=== PATIENT | male | born 1975 | race Caucasian/White ===

== ENCOUNTER 2021-09-26 05:22 | Observation (INO) | payer SELFPAY ==
[2021-09-26 05:46] LABS: Hemoglobin 17.9 g/dL (14.0-18.0); Mean Corpuscular HGB CONC 33.9 g/dL (32.0-36.0); Mean Corpuscular Hemoglobin 33.6 pg (27.0-31.0); Mean Platelet Volume 8.5 fL (7.4-10.4); Platelet Count 164 thou/uL (130-400); RBC Distribution Width 12.5 % (11.5-14.5); Red Blood Cell (RBC) Count 5.33 mill/uL (4.70-6.10); White Blood Cell (WBC) Count 20.5 thou/uL (4.8-10.8)
[2021-09-26 06:05] LABS: ALT (SGPT) 169 U/L (8-55); AST (SGOT) 88 U/L (5-34); Albumin 4.3 g/dL (3.5-5.0); Alkaline Phosphatase 81 U/L (40-110); Anion Gap 16 mmol/L (10-20); BUN (Urea Nitrogen) 6 mg/dL (8.9-20.6); Band 3 % (5-11); Calc. Creatinine Clearance 0 mL/min (70-130); Calcium 9.5 mg/dL (7.8-10.44); Carbon Dioxide 22 mmol/L (22-29); Chloride 102 mmol/L (98-107); Globulin 3.8 g/dL (2.4-3.5); Glucose 126 mg/dL (70-105); Lymphocytes 14 % (21-51); MDiff Complete? YES; Monocytes 18 % (0-10); Neutrophil 65 % (42-75); Platelet Morphology Comment Appears Adequate; Protein, Total 8.1 g/dL (6.0-8.3); RBC Morphology Normal; Sodium 136 mmol/L (136-145)
[2021-09-26] MEDS ORDERED: Aspirin 325 MG TAB ONE (08:04)
[2021-09-26] MEDS ORDERED: Ketorolac Tromethamine 30 MG/ML VIAL ONE (08:04)
[2021-09-26] MEDS ORDERED: Morphine 4 MG/ML VIAL ONE (08:04)
[2021-09-26] MEDS ORDERED: Ondansetron PF 4 MG/2 ML Vial IVP PRN (10:07)
[2021-09-26] MEDS ORDERED: Senokot S 8.6-50 MG TAB PO PRN (10:07)
[2021-09-26] MEDS ORDERED: Acetaminophen 325 MG TAB PO PRN (10:07)
[2021-09-26] MEDS ORDERED: Guaifenesin DM 100-10/5 ML UDCUP PO PRN (10:07)
[2021-09-26] MEDS ORDERED: HYDROcodone/Acetaminophen 5/325 mg Tablet PO PRN (10:07)
[2021-09-26] MEDS ORDERED: Calcium Carbonate 500 MG ChewTAB PO PRN (10:07)
[2021-09-26 11:11] LABS: SARS-CoV-2 NAA Rapid Test Not Detected (NotDetected)
[2021-09-26] MEDS: Sodium Chloride 0.9% 1,000 ML IV SCH ×2 (11:14→17:35)
[2021-09-26 11:51] LABS: Cardiac Risk 5.2 (Less than 4.5)
[2021-09-26 12:02] LABS: Troponin I Less than 0.010 ng/mL (< 0.028)
[2021-09-26] MEDS: Nitroglycerin 2% Ointment 1 INCH/1 GM Packet TOP SCH ×2 (14:55→21:01)
[2021-09-26] MEDS ORDERED: Nitroglycerin 2% Ointment 1 INCH/1 GM Packet ONE (14:59)
[2021-09-26 15:15] LABS: Troponin I Less than 0.010 ng/mL (< 0.028)
[2021-09-26 19:32] VITALS: BMI 31.6
[2021-09-26] MEDS ORDERED: Morphine 4 MG/ML VIAL SLOW IVP PRN (20:16)
[2021-09-26] MEDS: Enoxaparin Sodium 100 MG/ML SYRINGE SC SCH (21:00)
[2021-09-26] MEDS: Carvedilol 3.125 MG TAB PO SCH (21:00)
[2021-09-26] MEDS: Colchicine 0.6 MG TAB PO SCH (21:00)
[2021-09-26] MEDS: Ketorolac Tromethamine 30 MG/ML VIAL IVP PRN (21:01)
[2021-09-27] MEDS: Nitroglycerin 2% Ointment 1 INCH/1 GM Packet TOP SCH (05:34)
[2021-09-27] MEDS: Ketorolac Tromethamine 30 MG/ML VIAL IVP PRN (05:35)
[2021-09-27 07:25] LABS: #Basophils 0.1 thou/uL (0.0-0.2); #Eosinphils 0.2 thou/uL (0.0-0.7); #Lymphocytes 2.7 thou/uL (1.20-3.40); #Monocytes 1.1 thou/uL (0.11-0.59); #Neutrophils 8.2 thou/uL (1.40-6.50); %Basophils 0.5 % (0.0-1.0); %Monocytes 8.6 % (0.0-10.0); Hemoglobin 16.2 g/dL (14.0-18.0); Mean Corpuscular HGB CONC 32.9 g/dL (32.0-36.0); Mean Corpuscular Hemoglobin 33.4 pg (27.0-31.0); Mean Platelet Volume 9.1 fL (7.4-10.4); Platelet Count 124 thou/uL (130-400); RBC Distribution Width 12.4 % (11.5-14.5); Red Blood Cell (RBC) Count 4.84 mill/uL (4.70-6.10); White Blood Cell (WBC) Count 12.2 thou/uL (4.8-10.8)
[2021-09-27 07:43] LABS: Anion Gap 12 mmol/L (10-20); BUN (Urea Nitrogen) 11 mg/dL (8.9-20.6); Calc. Creatinine Clearance 142 mL/min (70-130); Calcium 8.7 mg/dL (7.8-10.44); Carbon Dioxide 22 mmol/L (22-29); Chloride 103 mmol/L (98-107); Glucose 84 mg/dL (70-105); Potassium 3.7 mmol/L (3.5-5.1); Sodium 133 mmol/L (136-145)
[2021-09-27 07:48] VITALS: TEMP 98.4
[2021-09-27] MEDS ORDERED: Ibuprofen 600 MG TAB PO SCH (08:00)
[2021-09-27] MEDS ORDERED: Aspirin Chewable 81 MG TAB PO SCH (09:00)
[2021-09-27] MEDS: Enoxaparin Sodium 100 MG/ML SYRINGE SC SCH (09:11)
[2021-09-27] MEDS: Carvedilol 3.125 MG TAB PO SCH (09:11)
[2021-09-27] MEDS: Colchicine 0.6 MG TAB PO SCH (09:11)
[2021-09-27 11:48] VITALS: BP 118/67
[2021-09-29] MEDS ORDERED: FLU VACC QS2021-22(6MOS UP)/PF 60 MCG/0.5 ML SYRINGE IM ONE (09:00)
== END 2021-09-27 11:55 | disposition home or self-care (01) ==
LOC: ERS 05:22 → ERHOLD 10:07 → 2NO 17:52
PROVIDERS: ADMIT Internal Medicine; ATTEND Internal Medicine
DX: I30.9 Acute pericarditis, unspecified (principal); F17.210 Nicotine dependence, cigarettes, uncomplicated; I08.1 Rheumatic disorders of both mitral and tricuspid valves; R79.89 Other specified abnormal findings of blood chemistry; Z20.822 Contact with and (suspected) exposure to COVID-19
CPT/HCPCS: 36415; 71045; 71275; 80048; 80053; 80061; 82550; 84484; 85025; 85379; 87040; 87086; 87633; 93005; 93306; 96372; 96374; 96375; 96376; G0378; J1650; J1885; J2270; J7050; U0002

== ENCOUNTER 2023-07-05 08:43 | Inpatient (IN) | payer OTHER, SELFPAY ==
[2023-07-05] MEDS ORDERED: Ketorolac Tromethamine 30 MG/ML VIAL ONE (09:03)
[2023-07-05] MEDS ORDERED: Ondansetron PF 4 MG/2 ML Vial ONE ×2 (09:03→19:03)
[2023-07-05 09:25] LABS: #Basophils 0.1 thou/uL (0.0-0.2); #Eosinphils 0.6 thou/uL (0.0-0.7); #Monocytes 1.1 thou/uL (0.11-0.59); #Neutrophils 13.3 thou/uL (1.40-6.50); %Basophils 0.7 % (0.0-1.0); %Eosinophils 3.5 % (0.0-10.0); %Lymphocytes 12.8 % (21.0-51.0); %Monocytes 6.4 % (0.0-10.0); %Neutrophils 75.6 % (42.0-75.0); Hematocrit 45.3 % (42.0-52.0); Hemoglobin 15.4 g/dL (14.0-18.0); Mean Corpuscular Hemoglobin 32.6 pg (27.0-31.0); Mean Platelet Volume 10.9 fL (7.4-10.4); Platelet Count 245 10x3/uL (130-400); RBC Distribution Width 12.2 % (11.5-14.5); Red Blood Cell (RBC) Count 4.72 mill/uL (4.70-6.10); White Blood Cell (WBC) Count 17.6 10x3/uL (4.8-10.8)
[2023-07-05 09:48] LABS: ALT (SGPT) 63 U/L (8-55); AST (SGOT) 77 U/L (5-34); Albumin 3.8 g/dL (3.5-5.0); Alkaline Phosphatase 149 U/L (40-110); Anion Gap 13 mmol/L (10-20); BUN (Urea Nitrogen) 10 mg/dL (8.9-20.6); Bilirubin, Total 0.8 mg/dL (0.2-1.2); Calc. Creatinine Clearance 0 mL/min (70-130); Calcium 9.4 mg/dL (7.8-10.44); Carbon Dioxide 25 mmol/L (22-29); Chloride 97 mmol/L (98-107); Estimated GFR 106; Globulin 3.7 g/dL (2.4-3.5); Glucose 125 mg/dL (70-105); Lipase 62 U/L (8-78); Potassium 3.2 mmol/L (3.5-5.1); Protein, Total 7.5 g/dL (6.0-8.3); Sodium 132 mmol/L (136-145)
[2023-07-05] MEDS ORDERED: Sodium Chloride 0.9% 1,000 ML IV SCH (10:30)
[2023-07-05] MEDS ORDERED: Ipratropium/Albuterol 3 ML NEB NEB PRN (10:30)
[2023-07-05] MEDS ORDERED: Ondansetron PF 4 MG/2 ML Vial IVP PRN ×2 (10:30→22:20)
[2023-07-05] MEDS ORDERED: traMADol HCl 50 MG TAB PO PRN (10:33)
[2023-07-05] MEDS ORDERED: Acetaminophen 500 MG TAB PO SCH (10:45)
[2023-07-05 11:03] LABS: INR-International Normal Ratio 1.2; PTT 31.1 sec (22.9-36.1); Prothrombin Time 15.4 sec (12.0-14.7)
[2023-07-05] MEDS ORDERED: Piperacillin/Tazobactam 4.5 GM VIAL ONE (11:03)
[2023-07-05] MEDS ORDERED: Sodium Chloride 0.9% 100 ML ONE (11:04)
[2023-07-05] MEDS ORDERED: Magnesium 2 GM/50 ML(in water) 2 GM in Premix 1 BAG IVPB SCH (12:00)
[2023-07-05 12:22] VITALS: BMI 26.6
[2023-07-05] MEDS ORDERED: FLU VACC QS2023-24(6MOS UP)/PF 60 MCG/0.5 ML SYRINGE IM ONE (12:45)
[2023-07-05] MEDS: Lactated Ringer's 1,000 ML IV SCH ×2 (12:55→22:09)
[2023-07-05] MEDS: traMADol HCl 50 MG TAB PO SCH ×3 (12:55→23:37)
[2023-07-05] MEDS: Acetaminophen 325 MG TAB PO SCH ×2 (12:56→17:30)
[2023-07-05] MEDS: Potassium Chloride 20 MEQ in Premix 1 BAG IVPB SCH ×2 (14:17→16:12)
[2023-07-05] MEDS: Piperacillin/Tazobactam 3.375 GM in Sodium Chloride 0.9% 100 ML IVPB SCH ×3 (17:52→23:40)
[2023-07-05] MEDS ORDERED: EPINEPHrine 1 MG/ML VIAL ONE (18:30)
[2023-07-05] MEDS ORDERED: Bupivacaine PF 0.5% 30 ML VIAL ONE (18:30)
[2023-07-05] MEDS ORDERED: fentaNYL 50 mcg/mL 1 mL Vial ONE (18:48)
[2023-07-05] MEDS ORDERED: fentaNYL PF 100 MCG/2 ML SYRINGE ONE (18:49)
[2023-07-05] MEDS ORDERED: Lidocaine 1% PF 5 ML VIAL ONE (19:03)
[2023-07-05] MEDS ORDERED: Glycopyrrolate 0.2 MG/ML 5 ML SYRINGE ONE (19:03)
[2023-07-05] MEDS ORDERED: Rocuronium Bromide 10 MG/ML (10ML VIAL) ONE (19:03)
[2023-07-05] MEDS ORDERED: PROPOFOL 200 MG/20 ML VIAL ONE (19:03)
[2023-07-05] MEDS ORDERED: Dexamethasone 20 MG/5 ML VIAL ONE (19:03)
[2023-07-05] MEDS ORDERED: NEOSTIGMINE 3 MG/3 ML SYR 3 MG/3 ML SYRINGE ONE (19:03)
[2023-07-05] MEDS ORDERED: PHENYLEPHRINE-NS 100 MCG/ML 10 ML SYRINGE ONE (19:03)
[2023-07-05] MEDS ORDERED: Ondansetron HCl/PF 4 MG/2 ML Vial IVP PRN (21:00)
[2023-07-05] MEDS ORDERED: Morphine Sulfate 2 MG/ML SYRINGE SLOW IVP PRN (21:00)
[2023-07-05] MEDS ORDERED: HYDROmorphone 2 MG/ML VIAL SLOW IVP PRN (21:00)
[2023-07-05] MEDS ORDERED: PACU-Morphine 4MG/ML VIAL SLOW IVP PRN (21:00)
[2023-07-05] MEDS ORDERED: Famotidine 20 MG TAB PO SCH (21:00)
[2023-07-05] MEDS ORDERED: Promethazine HCl 25 MG/ML VIAL IM PRN (21:00)
[2023-07-05] MEDS: Morphine 2 MG/ML VIAL SLOW IVP PRN (22:08)
[2023-07-05] MEDS: Pantoprazole 40 MG VIAL IVP SCH (22:22)
[2023-07-06] MEDS: Lactated Ringer's 1,000 ML IV SCH (03:50)
[2023-07-06] MEDS: Morphine 4 MG/ML VIAL SLOW IVP PRN ×2 (03:50→15:07)
[2023-07-06 05:50] LABS: #Basophils 0.1 thou/uL (0.0-0.2); #Monocytes 0.4 thou/uL (0.11-0.59); #Neutrophils 16.8 thou/uL (1.40-6.50); %Basophils 0.3 % (0.0-1.0); %Eosinophils 0.1 % (0.0-10.0); %Lymphocytes 7.3 % (21.0-51.0); %Monocytes 1.9 % (0.0-10.0); %Neutrophils 89.1 % (42.0-75.0); Hematocrit 37.4 % (42.0-52.0); Hemoglobin 12.8 g/dL (14.0-18.0); Mean Corpuscular HGB CONC 34.2 g/dL (32.0-36.0); Mean Corpuscular Hemoglobin 32.9 pg (27.0-31.0); Mean Corpuscular Volume 96.1 fl (78.0-98.0); Mean Platelet Volume 11.3 fL (7.4-10.4); Platelet Count 209 10x3/uL (130-400); Red Blood Cell (RBC) Count 3.89 mill/uL (4.70-6.10); White Blood Cell (WBC) Count 18.9 10x3/uL (4.8-10.8)
[2023-07-06 06:15] LABS: ALT (SGPT) 59 U/L (8-55); AST (SGOT) 74 U/L (5-34); Albumin 3.2 g/dL (3.5-5.0); Alkaline Phosphatase 121 U/L (40-110); Bilirubin, Direct 0.5 mg/dL (0.1-0.3); Bilirubin, Total 0.9 mg/dL (0.2-1.2); Phosphorus 3.9 mg/dL (2.3-4.7); Protein, Total 6.4 g/dL (6.0-8.3)
[2023-07-06 06:16] LABS: Anion Gap 14 mmol/L (10-20); BUN (Urea Nitrogen) 16 mg/dL (8.9-20.6); Calc. Creatinine Clearance 111 mL/min (70-130); Calcium 8.2 mg/dL (7.8-10.44); Carbon Dioxide 23 mmol/L (22-29); Chloride 103 mmol/L (98-107); Estimated GFR 105; Glucose 131 mg/dL (70-105); Magnesium 2.1 mg/dL (1.6-2.6); Potassium 4.7 mmol/L (3.5-5.1); Sodium 135 mmol/L (136-145)
[2023-07-06] MEDS: traMADol HCl 50 MG TAB PO SCH (06:38)
[2023-07-06] MEDS: Sodium Chloride 0.9% 1,000 ML IV SCH ×3 (08:48→20:26)
[2023-07-06] MEDS: Piperacillin/Tazobactam 3.375 GM in Sodium Chloride 0.9% 100 ML IVPB SCH ×2 (08:49→17:17)
[2023-07-06] MEDS: Pantoprazole 40 MG VIAL IVP SCH ×2 (08:49→20:24)
[2023-07-06] MEDS: Morphine 2 MG/ML VIAL SLOW IVP PRN ×2 (08:56→20:24)
[2023-07-07] MEDS: Morphine 4 MG/ML VIAL SLOW IVP PRN ×4 (00:17→22:23)
[2023-07-07] MEDS: Piperacillin/Tazobactam 3.375 GM in Sodium Chloride 0.9% 100 ML IVPB SCH ×3 (00:17→16:25)
[2023-07-07] MEDS: Morphine 2 MG/ML VIAL SLOW IVP PRN (05:21)
[2023-07-07] MEDS: Pantoprazole 40 MG VIAL IVP SCH ×2 (07:59→20:49)
[2023-07-07] MEDS: Sodium Chloride 0.9% 1,000 ML IV SCH ×3 (07:59→22:27)
[2023-07-07] MEDS ORDERED: Ketorolac Tromethamine 30 MG/ML VIAL IVP SCH (08:45)
[2023-07-07] MEDS: Ketorolac Tromethamine 30 MG/ML VIAL IVP SCH ×2 (14:26→20:44)
[2023-07-08] MEDS: Piperacillin/Tazobactam 3.375 GM in Sodium Chloride 0.9% 100 ML IVPB SCH ×2 (01:05→09:20)
[2023-07-08] MEDS: Morphine 4 MG/ML VIAL SLOW IVP PRN ×3 (03:17→09:20)
[2023-07-08] MEDS: Ketorolac Tromethamine 30 MG/ML VIAL IVP SCH ×2 (03:20→09:20)
[2023-07-08] MEDS: Sodium Chloride 0.9% 1,000 ML IV SCH (09:21)
[2023-07-08] MEDS: Pantoprazole 40 MG VIAL IVP SCH (09:21)
[2023-07-08] MEDS ORDERED: traMADol HCl 50 MG TAB PO PRN (13:49)
[2023-07-08] MEDS ORDERED: Acetaminophen 500 MG TAB PO SCH (14:00)
[2023-07-08] MEDS: Acetaminophen 500 MG TAB PO SCH (20:14)
[2023-07-08] MEDS: Colchicine 0.6 MG TAB PO SCH (20:14)
[2023-07-08] MEDS: Senokot S 8.6-50 MG TAB PO SCH ×2 (20:14→20:16)
[2023-07-09] MEDS: Acetaminophen 500 MG TAB PO SCH ×2 (02:01→08:05)
[2023-07-09] MEDS: Senokot S 8.6-50 MG TAB PO SCH (08:05)
[2023-07-09] MEDS: Colchicine 0.6 MG TAB PO SCH (08:06)
[2023-07-09 08:28] VITALS: BP 131/82; TEMP 98.2
[2023-07-09] MEDS ORDERED: Polyethylene Glycol 3350 17 GM Packet PO SCH (09:00)
== END 2023-07-09 12:38 | disposition home or self-care (01) | DRG 417 ==
LOC: ERS 08:43 → T4-A 10:30
PROVIDERS: ADMIT Surgery; ATTEND Surgery
PROC: 0FT44ZZ Resection of Gallbladder, Percutaneous Endoscopic Approach (ICD-10-PCS; principal; 2023-07-05)
PROC: 0DU947Z Supplement Duodenum with Autologous Tissue Substitute, Percutaneous Endoscopic Approach (ICD-10-PCS; 2023-07-05)
DX: K80.00 Calculus of gallbladder with acute cholecystitis without obstruction (principal); K26.5 Chronic or unspecified duodenal ulcer with perforation; Z79.899 Other long term (current) drug therapy; I10 Essential (primary) hypertension; F41.9 Anxiety disorder, unspecified; Z87.891 Personal history of nicotine dependence; Z82.49 Family history of ischemic heart disease and other diseases of the circulatory system; Z88.2 Allergy status to sulfonamides
CPT/HCPCS: 36415; 71045; 74240; 76705; 80048; 80053; 80076; 83605; 83690; 83735; 84100; 85025; 85610; 85730; 87040; 88304; 93005; 96365; 96375; C1889; C9113; J0171; J1100; J1650; J1885; J2270; J2272; J2405; J2543; J2704; J3010; J3475; J3480; J3490; J7050; J7120; S0020